=== PATIENT | male | born 2000 | race African-American/Black ===

== ENCOUNTER 2021-03-30 09:33 | Emergency (ER) | payer SELFPAY ==
[~2021-03-30] VITALS: Ht 190.5 cm; Wt 120.0 kg
[~2021-03-30 09:33] MED LIST: GENTAMICIN0.3 % OU
[2021-03-30 10:28] LABS: URINE BILIRUBIN - DIPSTICK NEGATIVE (NEGATIVE); URINE BLOOD DIPSTICK TRACE-INTACT (NEGATIVE); URINE COLOR YELLOW; URINE GLUCOSE - DIPSTICK NEGATIVE (NEGATIVE); URINE KETONE TRACE mg/dL (NEGATIVE); URINE LEUK ESTERASE NEGATIVE (NEGATIVE); URINE PROTEIN - DIPSTICK NEGATIVE (NEG-TRACE); URINE SPECIFIC GRAVITY 1.025
[2021-03-30 10:29] LABS: URINE NITRITE - DIPSTICK NEGATIVE (Negative)
[2021-03-30 10:36] LABS: IMMATURE GRANULOCYTES 0.3 % (0.0-5.0); MEAN CELL VOLUME 69.2 fL CALC (80.0-100.0); MEAN CORPUSCULAR HGB CONC 33.2 g/dL CAL (32.0-36.0); NEUT# 3.75 thou/uL (1.82-7.42); RED BLOOD COUNT 6.49 mill/uL (4.70-6.10); RED CELL DISTRI WIDTH 16.5 % (11.5-15.5)
[2021-03-30 10:37] LABS: HEMATOCRIT 44.9 % (39.0-50.0); HEMOGLOBIN 14.9 g/dl (14.0-18.0)
[2021-03-30 11:18] LABS: ALBUMIN 4.6 g/dL (3.2-5.0); ALKALINE PHOSPHATASE 94 u/l (38-126); ANION GAP 14 (6-22 (CALC)); BILIRUBIN, TOTAL 0.5 mg/dL (0.0-1.4); BUN 12 mg/dL (9-20); BUN/CREATININE RATIO 15 (12-20 (CALC)); CARBON DIOXIDE 24 mmol/l (22-30); CHLORIDE 104 mmol/l (95-108); CREATININE 0.8 mg/dL (0.7-1.3); GFR > 60 ML/MIN (>=60 (CALC)); GFR FOR AFR.AMER. > 60 ML/MIN (>=60 (CALC)); LIPASE 38 u/l (23-300); POTASSIUM 3.5 mmol/l (3.5-5.1); SGOT/AST 35 u/l (17-59); SODIUM 139 mmol/l (137-146); TOTAL PROTEIN 8.1 g/dL (6.3-8.2)
[2021-03-30] MEDS ORDERED: ZOFRAN4 M1 PO (11:26)
[2021-03-30 11:34] VITALS: BP 138/73
== END 2021-03-30 11:54 | disposition home or self-care (01) | DRG 392 ==
LOC: ED 09:33
PROVIDERS: Family Medicine
DX: R10.32 Left lower quadrant pain (principal); R11.2 Nausea with vomiting, unspecified; R19.7 Diarrhea, unspecified; F17.200 Nicotine dependence, unspecified, uncomplicated
CPT/HCPCS: Q9967

== ENCOUNTER 2022-03-30 16:37 | Emergency (ER) | payer SELFPAY ==
[~2022-03-30] VITALS: Ht 193 cm; Wt 118.1 kg
[2022-03-30] VITALS (13 sets, daily range): BP systolic 100–141; BP diastolic 60–103
[~2022-03-30 16:37] MED LIST changes: +ZOFRAN4 M1 PO
[2022-03-30 17:49] LABS: HEMATOCRIT 46.3 % (39.0-50.0); HEMOGLOBIN 15.5 g/dl (14.0-18.0); IMMATURE GRANULOCYTES 0.1 % (0.0-5.0); MEAN CORPUSCULAR HGB 23.4 pG CALC (26.0-32.0); MEAN CORPUSCULAR HGB CONC 33.5 g/dL CAL (32.0-36.0); NEUT# 7.24 thou/uL (1.82-7.42); RED BLOOD COUNT 6.61 mill/uL (4.70-6.10); RED CELL DISTRI WIDTH 15.7 % (11.5-15.5)
[2022-03-30 17:54] LABS: ALBUMIN 4.9 g/dL (3.2-5.0); ALKALINE PHOSPHATASE 93 u/l (38-126); ANION GAP 19 (6-22 (CALC)); BUN 20 mg/dL (9-20); BUN/CREATININE RATIO 23 (12-20 (CALC)); CARBON DIOXIDE 22 mmol/l (22-30); CHLORIDE 104 mmol/l (95-108); CREATININE 0.9 mg/dL (0.7-1.3); GFR FOR AFR.AMER. > 60 ML/MIN (>=60 (CALC)); GFR OTHER RACES > 60 ML/MIN (>=60 (CALC)); POTASSIUM 3.5 mmol/l (3.5-5.1); SGOT/AST 26 u/l (17-59); SODIUM 141 mmol/l (137-146); TOTAL PROTEIN 8.7 g/dL (6.3-8.2)
[2022-03-30 17:59] LABS: BILIRUBIN, TOTAL 1.1 mg/dL (0.0-1.4)
[2022-03-30] MEDS ORDERED: VENTOLIN HFA108 MCG IN (19:26)
[2022-03-30] MEDS ORDERED: ONDANSETRON4 MG PO (19:26)
[2022-03-30] MEDS ORDERED: MEDDOSEPAK PO (19:26)
[2022-03-30 19:39] LABS: URINE BLOOD DIPSTICK NEGATIVE (NEGATIVE); URINE GLUCOSE - DIPSTICK NEGATIVE (NEGATIVE); URINE KETONE 15 mg/dL (NEGATIVE); URINE LEUK ESTERASE NEGATIVE (NEGATIVE); URINE PROTEIN - DIPSTICK 30 mg/dL (NEG-TRACE); URINE SPECIFIC GRAVITY >=1.030
[2022-03-30 19:44] LABS: URINE BILIRUBIN - DIPSTICK SMALL (NEGATIVE); URINE COLOR DK. YELLOW; URINE NITRITE - DIPSTICK NEGATIVE (Negative)
[2022-03-30 19:45] LABS: URINE RBC 0-2 RBC/hpf (0-5); URINE WBC 0-2 WBC/hpf (0-5)
== END 2022-03-30 20:15 | disposition home or self-care (01) | DRG 866 ==
LOC: ED 16:37
PROVIDERS: Nurse Practitioner
DX: B34.9 Viral infection, unspecified (principal); J45.901 Unspecified asthma with (acute) exacerbation; F17.200 Nicotine dependence, unspecified, uncomplicated; Z20.822 Contact with and (suspected) exposure to COVID-19